=== PATIENT | female | born 2000 | race Caucasian/White ===

== ENCOUNTER 2019-02-23 21:33 | Emergency (ER) | payer OTHER, SELFPAY ==
[2019-02-23 21:53] VITALS: BP 130/81; PULSE 91; RESP 14; TEMP 36.4; O2SAT 100; BMI 25.7
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
== END 2019-02-23 22:28 | disposition home or self-care (01) ==
PROVIDERS: Emergency Provider Emergency Medicine
DX: R07.81 Pleurodynia (principal); V43.62XA Car passenger injured in collision with other type car in traffic accident, initial encounter
CPT/HCPCS: 99282